=== PATIENT | male | born 1995 | race African-American/Black ===

== ENCOUNTER 2017-09-15 12:42 | Inpatient (IN) | payer SELFPAY ==
[~2017-09-15] VITALS: Ht 167.6 cm; Wt 56.4 kg
[2017-09-15 12:54] VITALS: Ht 167.6 cm; Wt 56.4 kg
[2017-09-15 13:33] LABS: AMPHETAMINE QUAL UR NONE DETECTED (See below)
[2017-09-15 13:51] LABS: CALCIUM 9.5 mg/dL (8.5-10.1); CARBON DIOXIDE 25.2 mmol/L (21-32); CHLORIDE SERUM 104 mmol/L (98-107); CREATININE SERUM 1.5 mg/dL (0.7-1.3); GFR1 > 60 mL/min; GLUCOSE SERUM 89 mg/dL (74-106); POTASSIUM SERUM 3.3 mmol/L (3.5-5.1); SODIUM SERUM 143 mmol/L (136-145)
[2017-09-15 13:53] LABS: BASOPHIL % 0.8 % (0-2); PLATELET COUNT 224 x10^3mcL (130-400); RED CELL DISTRIBUTION WIDTH 13.8 % (11.5-14.5)
[2017-09-15 13:55] LABS: ALBUMIN 4.7 g/dL (3.4-5.0); ALKALINE PHOSPHATASE 84 U/L (46-116); ALT/SGPT 38 U/L (16-63); AST/SGOT 48 U/L (15-37); BILIRUBIN TOTAL 1.32 mg/dL (0.20-1.00); TOTAL PROTEIN, SERUM 7.7 g/dL (6.4-8.2)
[2017-09-16 02:46] LABS: UA SPECIFIC GRAVITY 1.015 (1.005-1.035); microscopic required? YES; urine erythrocyte NEGATIVE (NEGATIVE)
[2017-09-16 03:04] LABS: CHOLESTEROL/HDL RATIO 2.9; MAGNESIUM 2.2 mg/dL (1.8-2.4); PHOSPHOROUS 3.3 mg/dL (2.5-4.9)
[2017-09-16 03:13] LABS: T3 TOTAL 0.79 ng/mL
[2017-09-16 03:16] LABS: FREE T4 1.09 ng/dL (0.76-1.46); FREE THYROXINE INDEX 2.6 ug/dL (1.4-4.5); T4(THYROXINE) 7.4 ug/dL (4.7-13.3)
[2017-09-16 05:17] LABS: BASOPHIL % 0.7 % (0-2); PLATELET COUNT 205 x10^3mcL (130-400); RED CELL DISTRIBUTION WIDTH 13.5 % (11.5-14.5)
[2017-09-16 05:31] LABS: CALCIUM 8.8 mg/dL (8.5-10.1); CARBON DIOXIDE 31.2 mmol/L (21-32); CHLORIDE SERUM 106 mmol/L (98-107); CREATININE SERUM 1.2 mg/dL (0.7-1.3); GFR1 > 60 mL/min; GLUCOSE SERUM 104 mg/dL (74-106); MAGNESIUM 2.5 mg/dL (1.8-2.4); PHOSPHOROUS 4.7 mg/dL (2.5-4.9); POTASSIUM SERUM 3.5 mmol/L (3.5-5.1); SODIUM SERUM 143 mmol/L (136-145)
[2017-09-16 13:08] VITALS: BP 126/88
[2017-09-16 14:11] VITALS: BP 128/68
[2017-09-16 17:23] VITALS: BP 132/86
[2017-09-16 21:26] VITALS: BP 135/77
[2017-09-17 05:17] VITALS: BP 121/80
[2017-09-17 06:29] LABS: BASOPHIL % 0.5 % (0-2); PLATELET COUNT 177 x10^3mcL (130-400); RED CELL DISTRIBUTION WIDTH 14.2 % (11.5-14.5)
[2017-09-17 06:41] LABS: ALBUMIN 3.5 g/dL (3.4-5.0); ALKALINE PHOSPHATASE 85 U/L (46-116); ALT/SGPT 25 U/L (16-63); AST/SGOT 23 U/L (15-37); BILIRUBIN TOTAL 0.3 mg/dL (0.20-1.00); CARBON DIOXIDE 29.4 mmol/L (21-32); CHLORIDE SERUM 107 mmol/L (98-107); CREATININE SERUM 1.2 mg/dL (0.7-1.3); GFR1 > 60 mL/min; GLUCOSE SERUM 86 mg/dL (74-106); POTASSIUM SERUM 4.1 mmol/L (3.5-5.1); SODIUM SERUM 142 mmol/L (136-145); TOTAL PROTEIN, SERUM 6.2 g/dL (6.4-8.2)
[2017-09-17] MEDS ORDERED: ZYP10 PO (08:51)
[2017-09-17] MEDS ORDERED: SERO100 PO (08:52)
[2017-09-17 10:27] VITALS: BP 114/66
== END 2017-09-17 12:15 | disposition home or self-care (01) | DRG 917 ==
LOC: ED 12:42 → DU 09-16 01:29
PROVIDERS: Emergency Medicine; Family Medicine
DX: T40.7X1A Poisoning by cannabis (derivatives), accidental (unintentional), initial encounter (principal); G92 Toxic encephalopathy; N17.0 Acute kidney failure with tubular necrosis; F31.9 Bipolar disorder, unspecified; E87.6 Hypokalemia; Y92.89 Other specified places as the place of occurrence of the external cause; F29 Unspecified psychosis not due to a substance or known physiological condition
CPT/HCPCS: 84439; G0480; J7030; Q0092